=== PATIENT | male | born 1970 | race Caucasian/White ===

== ENCOUNTER 2017-02-10 20:57 | Emergency (ER) | payer MEDICAID ==
[~2017-02-10] VITALS: Ht 177.8 cm; Wt 115.7 kg
[2017-02-10 20:57] VITALS: BP_SYST 114
--- NOTE | 2017-02-10 21:32 | NUR ---
Note charmaine in ED - 02/10/17 at 2135 by [email or web address] Patient to [facility] 02 to [place] for evaluation. Side rails up.
--- NOTE | 2017-02-10 21:45 | NUR ---
Patient to ER bed 7 to gown for evaluation. Side rails up. Report given to JAKE CROCKETT.
[2017-02-10] MEDS ORDERED: ONDANSETRON HCL 4 MG/2 ML VIAL IVP ONE (22:00)
[2017-02-10] MEDS ORDERED: NACL 0.9% 1,000 ML IV ONE (22:00)
[2017-02-10] MEDS ORDERED: HYDROmorphone 1 MG INJ. 1 MG/ML AMPUL IVP ONE (22:00)
--- NOTE | 2017-02-10 22:01 | NUR ---
ER at bedside examining patient.
--- NOTE | 2017-02-10 22:02 | NUR ---
ER Dr. Rajan at bedside examining patient.
--- NOTE | 2017-02-10 22:05 | NUR ---
PT STATES HE ATE GREASY FOODS AND HAS ABD PAIN. AFEBRILE. A/OX4. NO SOB OR DISTRESS. SAFETY PRECAUTIONS IN PLACE. WILL CONTINUE TO MONITOR.
[2017-02-10 22:48] LABS: BASOPHILS % (AUTO) 0.3 % (0.0-2.0); EOSINOPHILS # (AUTO) 0.1 K/uL (0.0-0.4); HEMATOCRIT 52.2 % (36-54); HEMOGLOBIN 17.3 g/dL (14.0-18.0); LYMPHOCYTES # (AUTO) 0.9 K/uL (1.0-5.5); LYMPHOCYTES % (AUTO) 9.9 % (20.5-51.5); MEAN CORPUSCULAR HEMOGLOBIN 30 pg (27-31); MEAN CORPUSCULAR HGB CONC 33 % (32-36); MEAN CORPUSCULAR VOLUME 91 fL (79.0-98.0); MONOCYTES # (AUTO) 0.4 K/uL (0.0-1.0); NEUTROPHILS # (AUTO) 7.5 K/uL (1.8-7.7); NEUTROPHILS % (AUTO) 84.8 % (40.0-70.0); PLATELET COUNT (AUTO) 266 K/uL (130-430); RED BLOOD CELL COUNT(AUTO) 5.74 MIL/uL (4.2-6.2); RED CELL DISTRIBUTION WIDTH 11.9 % (9.0-15.0); WHITE BLOOD COUNT (AUTO) 8.9 K/uL (4.8-10.8)
[2017-02-10 23:28] LABS: CALCIUM 8.8 mg/dL (8.4-11.0); CREATININE 0.84 mg/dL (0.55-1.30); POTASSIUM 3.9 mmol/L (3.5-5.1)
[2017-02-10 23:32] LABS: ALBUMIN 4.1 g/dL (3.4-4.8); TOTAL BILIRUBIN 1.1 mg/dL (0.0-1.0)
[2017-02-11 00:25] VITALS: BP_SYST 120
--- NOTE | 2017-02-11 00:25 | NUR ---
Patient given written and verbal discharge instructions and verbalizes understanding. ER MD DR. HALEY discussed with patient the results and treatment provided. Patient in stable condition. ID arm band removed. IV catheter removed intact and dressing applied, no active bleeding. Rx of ZOFRAN AND PERCOCET given. Patient educated on pain management and to follow up with PMD. Pain Scale 2/10, PT STATES PAIN IS TOLERABLE. AMBULATES W/ STEADY GAIT. Opportunity for questions provided and answered.
== END 2017-02-11 00:25 | disposition home or self-care (01) ==
LOC: SED 20:57
DX: R10.84 Generalized abdominal pain (principal); R11.0 Nausea; E11.9 Type 2 diabetes mellitus without complications
CPT/HCPCS: 36415; 74176; 80053; 83690; 85025; 96361; 96374; 96375; 99285; J1170; J2405; J7030

== ENCOUNTER 2019-02-19 17:39 | Emergency (ER) | payer MEDICAID ==
[~2019-02-19] VITALS: Ht 177.8 cm; Wt 117.5 kg
[2019-02-19 17:40] VITALS: BP_SYST 136
--- NOTE | 2019-02-19 17:45 | NUR ---
Patient triaged and placed in waiting room. VSS and patient appears in no acute distress at this time. Accompanied by SELF, awaiting available bed, and MD notified of need for MSE.
--- NOTE | 2019-02-19 18:30 | NUR ---
Patient to ER bed 08 for evaluation. Side rails up.
--- NOTE | 2019-02-19 18:42 | NUR ---
Note undone in EDM - 02/19/19 at 1956 by [email or web address] Pt AAOx4 ambulated into ED c/o redness, swelling, 9/10 pain to L hand r/t dog bite yesterday. Pt took ibuprofen with mild relief. Tetanus not up to date. No other injuries/complaints per pt/noted. Will continue to monitor. Je Jacobs is a 48-year-old Male with past medical history of chronic right knee pain, diabetes mellitus, pancreatitis who presents to the ED for dog bite that occurred last night. The patient presents to the ED with complaints of left hand pain associated with redness and swelling. He reports that the pain has gotten progressively worse this morning at 0900 which prompted him to come to the ED for further evaluation and treatment. He reports that the pain is a 9/10 in severity and is described as sharp pain. He reports that the pain is exacerbated with movement. He reports that he took Ibuprofen 800mg last night for pain relief. He reports that he is right hand dominant. Tetanus is not up to date. Otherwise, no respiratory distress, nausea, vomiting, diarrhea, numbness, tingling, bruising, purulent drainage or active bleeding.
--- NOTE | 2019-02-19 18:58 | NUR ---
ER Dr. Ambrosio at bedside examining patient.
[2019-02-19] MEDS ORDERED: DIPH-TET-PERTUS Vaccine 0.5 ML VIAL (ADACEL) I.M. ONE (19:00)
[2019-02-19] MEDS ORDERED: AMPICILLIN SODIUM/SULBACTAM NA 3 GM VIAL IM ONE (19:00)
[2019-02-19 19:30] VITALS: BP_SYST 129
--- NOTE | 2019-02-19 19:30 | NUR ---
Patient given written and verbal discharge instructions and verbalizes understanding. ER MD discussed with patient the results and treatment provided. Patient in stable condition. ID arm band removed. Rx of Augmentin given. Patient educated on pain management and to follow up with PMD. Pain Scale 0. Opportunity for questions provided and answered. Medication side effect fact sheet provided.
== END 2019-02-19 19:30 | disposition home or self-care (01) ==
LOC: SED 17:39
DX: S61.235A Puncture wound without foreign body of left ring finger without damage to nail, initial encounter (principal); E11.9 Type 2 diabetes mellitus without complications; W54.0XXA Bitten by dog, initial encounter; Y93.89 Activity, other specified; Y92.89 Other specified places as the place of occurrence of the external cause; Y99.8 Other external cause status
CPT/HCPCS: 73130; 90471; 90715; 96372; 99283; J0295

== ENCOUNTER 2019-11-12 17:50 | Emergency (ER) | payer MEDICAID ==
[~2019-11-12] VITALS: Ht 177.8 cm; Wt 120.2 kg
[2019-11-12 18:15] VITALS: BP_SYST 149
--- NOTE | 2019-11-12 18:28 | NUR ---
Pt came to ER for abscess red and swollen on R armpit and L chest. Pt denies pain at this time, resting in torin Eladio.
--- NOTE | 2019-11-12 18:28 | NUR ---
Patient to ER bed 7 to gown for evaluation. Side rails up.
--- NOTE | 2019-11-12 18:30 | NUR ---
LATOYA OSORIO, PT HERE FOR ABSCESS X 2, RT AXILLARY AND ABD. DENIES FEVER/CHILLS
--- NOTE | 2019-11-12 18:40 | NUR ---
dr marshall in to assess
--- NOTE | 2019-11-12 18:52 | NUR ---
CALM, ALERT, RESP UNLABORED, SKIN WARM AND DRY. DENIES CP/SOB
--- NOTE | 2019-11-12 19:00 | NUR ---
Patient given written and verbal discharge instructions and verbalizes understanding. ER MD discussed with patient the results and treatment provided. Patient in stable condition. ID arm band removed. Rx of ABX given. Patient educated on pain management and to follow up with PMD. Pain Scale 1/10 Opportunity for questions provided and answered. Medication side effect fact sheet provided.
[2019-11-12 19:36] VITALS: BP_SYST 131
== END 2019-11-12 19:36 | disposition home or self-care (01) ==
LOC: SED 17:50
DX: L03.90 Cellulitis, unspecified (principal)
CPT/HCPCS: 99283

== ENCOUNTER 2020-02-29 18:35 | Emergency (ER) | payer MEDICAID ==
[~2020-02-29] VITALS: Ht 177.8 cm; Wt 115.7 kg
[2020-02-29 19:19] VITALS: BP_SYST 150
[2020-02-29] MEDS ORDERED: LIDOCAINE 1%, 20 ML MDV 20 ML ONE (19:59)
[2020-02-29] MEDS ORDERED: LIDOCAINE 1% 10 MG/ML, 20 ML MDV SUBCUT ONE (20:00)
[2020-02-29 21:17] VITALS: BP_SYST 158
== END 2020-02-29 21:17 | disposition home or self-care (01) ==
LOC: SED 18:35
DX: L02.413 Cutaneous abscess of right upper limb (principal)
CPT/HCPCS: 10060; 82962; 99283; J2001